=== PATIENT | female | born 1955 | race Caucasian/White ===

== ENCOUNTER → 2017-08-06 | Outpatient (CLI) | payer BC ==
--- NOTE | 2017-08-06 14:00 | CTL ---
EXAMINATION TYPE: CT Low Dose Lung DATE OF EXAM ORDERED: 08/06/2017 HISTORY: Personal history of tobacco abuse. Lung cancer screening CT DLP: 89.[address] CTDI: 2.75 mGy Automated exposure control for dose reduction was used. SCREENING VISIT: Initial COMPARISON: None TECHNIQUE: Low dose computed tomography scan was performed through the chest at 1 mm thick sections a nd reconstructed images in the coronal plane at [address] DIAGNOSTIC QUALITY: Limited, but interpretable FINDINGS: LUNG NODULES: None. LUNGS: COPD: Severity: Mild centrilobular Fibrosis: Severity: None Lymph nodes: No adenopathy Other findings: Pleural parenchymal scarring is seen within the right lower lobe anteriorly with pun[place] jimenez benign calcification distally that could represent a tiny broncholith or granuloma. RIGHT PLEURAL SPACE: Effusion: None Calcification: None Thickening: None Pneumothorax: None LEFT PLEURAL SPACE: Effusion: None Calcification: None Thickening: None Pneumothorax: None HEART: Heart Size: Normal Coronary calcification: Minimal Pericardial effusion: None OTHER FINDINGS: Upper abdomen: Grossly unremarkable Bony thorax: Very minimal degenerative changes of the thoracic spine. Supraclavicular region: No adenopathy IMPRESSION: CT is negative for pulmonary nodule. Compatible with LUNG-RADS 1-no nodules and SMA benig n nodules-(probability of malignancy of less than 1%). FOLLOW UP CT CHEST RECOMMENDATION: Continued annual screening with low dose CT in 12 [address] LUNG RAD: Lung-Rad 1 Negative
== END ==
LOC: RADCTMAIN 13:06
PROVIDERS: ATTEND Family Medicine
DX: Z12.2 Encounter for screening for malignant neoplasm of respiratory organs (principal); Z87.891 Personal history of nicotine dependence

== ENCOUNTER → 2022-01-09 | Outpatient (CLI) | payer MEDICARE, OTHER ==
--- NOTE | 2022-01-11 09:58 | CTL ---
EXAMINATION TYPE: CT Low Dose Lung DATE OF EXAM ORDERED: 01/09/2022 HISTORY: Tobacco use. Lung cancer screening CT DLP: [address] CTDI: 2.2 mGy Automated exposure control for dose reduction was used. SCREENING VISIT: Follow-up visit. COMPARISON: 08/06/2017 TECHNIQUE: Low dose computed tomography scan was performed through the chest at 1 mm thick sections a nd reconstructed images in multiple planes at 1 mm and [address] DIAGNOSTIC QUALITY: Satisfactory FINDINGS: LUNG NODULES: None. LUNGS: COPD: Severity: None Fibrosis: Severity: None Lymph nodes: None Other findings: None RIGHT PLEURAL SPACE: Effusion: None Calcification: None Thickening: None Pneumothorax: None LEFT PLEURAL SPACE: Effusion: None Calcification: None Thickening: None Pneumothorax: None HEART: Heart Size: Normal Coronary Calcification: None Pericardial Effusion: None OTHER FINDINGS: Upper abdomen: The gallbladder surgically absent. Small splenule is noted. Bony thorax: None Supraclavicular region: None Other: None IMPRESSION: No pulmonary nodules. CT LUNG RAD AND CT CHEST RECOMMENDATION: Lung-Rad 1 Negative: Continue annual screening with LDCT in 12 months. S Modifier (other clinically significant findings): None
== END | disposition home or self-care (01) ==
LOC: RADCTMAIN 16:11
PROVIDERS: ATTEND Family Medicine
DX: Z12.2 Encounter for screening for malignant neoplasm of respiratory organs (principal); Z87.891 Personal history of nicotine dependence
CPT/HCPCS: 71271

== ENCOUNTER → 2023-01-27 | Outpatient (CLI) | payer MEDICARE, OTHER ==
[2023-01-27 14:18] LABS: African American GFR (CKD) >90 (>60 ml/min/1.73 sqM); Blood Urea Nitrogen 8 mg/dL (7-17); Non-African American GFR(CKD) 88 (>60 ml/min/1.73 sqM)
--- NOTE | 2023-01-27 16:15 | CT ---
EXAMINATION TYPE: CT abdomen w con CT DLP: 528.1 mGycm, Automated exposure control for dose reduction was used. DATE OF EXAM: 01/27/2023 3:05 PM COMPARISON: 11/14/2012 CLINICAL INDICATION:Female, 67 years old with history of hernia; hernia TECHNIQUE: Axial CT of the ;CT abdomen w con;Sagittal and coronal reformats were created on a [employer] workstation. Contrast used:100 mL of Isovue 300 with IV Contrast, (none if empty) Oral contrast used: with Oral Contrast (none if empty) FINDINGS: LIVER: Unremarkable GALLBLADDER AND BILE DUCTS: The gallbladder is surgically absent. PANCREAS: Unremarkable. SPLEEN: Unremarkable. ADRENAL GLANDS: Unremarkable. KIDNEYS AND URETERS: No evidence of hydronephrosis or renal calculus. The ureters are unremarkable. STOMACH AND BOWEL: No evidence of bowel obstruction. PERITONEUM/RETROPERITONEUM: No evidence of pneumoperitoneum or free fluid. VASCULATURE: No evidence of aortic aneurysm. MUSCULOSKELETAL: No acute osseous abnormalities LYMPH NODES: No gross evidence for lymphadenopathy. SOFT TISSUE/ABDOMINAL WALL: Fat-containing upper ventral wall hernia. IMPRESSION: 1. Fat-containing upper ventral wall hernia. 2. No evidence for acute process.
--- NOTE | 2023-01-27 16:22 | CTL ---
EXAMINATION TYPE: CT Low Dose Lung DATE OF EXAM: 01/27/2023 3:04 PM CLINICAL INDICATION:Female, 67 years old with history of Z12.2 LUNG CANCER SCREENING; personal tobacc o use , history of tobacco use. COMPARISON: None. TECHNIQUE: Multiple axial non-contrast scans were obtained from approximately the lung apices through the upper abdomen. Coronal and sagittal reformatted images were obtained. Low dose technique was uti lized. CT DLP: 83.3 mGycm, Automated exposure control for dose reduction was used. CT Contrast: Contrast used: None Oral contrast used: None FINDINGS: ======== Lack of intravenous contrast and low dose technique limits the evaluation of the vascular and soft ti ssue structures. LUNGS: No evidence of pulmonary fibrosis. No evidence of focal consolidation, pneumothorax or pleural effusion. Nodules: RUL: None. RML: None. RLL: None. ORESTES: None. LLL: None. AIRWAY: Patent and unremarkable. HEART: Size within normal limits. MEDIASTINUM: No gross evidence of adenopathy. VASCULATURE: No aortic aneurysm. MUSCULOSKELETAL: No acute osseous abnormalities SOFT TISSUES/LYMPH NODES: Unremarkable. LOWER NECK: No significant findings. IMPRESSION: No clinically significant pulmonary nodules. CT LUNG RAD AND CT CHEST RECOMMENDATION: Lung-Rad 1 Negative: Continue annual screening with LDCT in 12 months. S Modifier (other clinically significant findings): None Recommend smoking cessation (if current smoker), or continuation of smoking cessation (if prior smoke r). Annual screening for lung cancer with low-dose computed tomography is recommended in adults ages 55 to 77 years who have a 30 pack-year smoking history and currently smoke or have quit within the pa st 15 years. Screening should be discontinued once a person has not smoked for 15 years or develops a health problem that substantially limits life expectancy or the ability or willingness to have curat vadim lung surgery. Lung rads 2021 [email or web address]
== END | disposition home or self-care (01) ==
LOC: RADCTMAIN 13:12
PROVIDERS: ATTEND Family Medicine
DX: Z12.2 Encounter for screening for malignant neoplasm of respiratory organs (principal); F17.210 Nicotine dependence, cigarettes, uncomplicated; K43.9 Ventral hernia without obstruction or gangrene; R19.09 Other intra-abdominal and pelvic swelling, mass and lump
CPT/HCPCS: 82565; 84520; 74160; 36415; 71271; Q9967

== ENCOUNTER → 2023-02-24 | Outpatient (CLI) | payer MEDICARE, OTHER ==
--- NOTE | 2023-02-24 18:42 | BD ---
EXAMINATION TYPE: Axial Bone Density DATE OF EXAM: 02/24/2023 CLINICAL HISTORY: 67 years old Female. ICD-10 CODE: Z78.0 Post menopausal Height: 5 ft 5 in Weight: 155 FRAX RISK QUESTIONS: Alcohol (3 or more units per day): no Family History (Parent hip fracture): no Glucocorticoids (More than 3mos): no (Ex: prednisone, prednisolone, methylprednisolone, dexamethasone, and hydrocortisone). History of Fracture in Adulthood: yes Secondary Osteoporosis: 1. Type 1 Diabetes: no 2. Hyperthyroidism: no 3. Menopause before 45: yes 4. Malnutrition: no 5. Chronic liver disease: no Rheumatoid Arthritis: no Current Tobacco Use: yes RISK FACTORS HISTORY OF: Surgery to Spine/Hip(right/left)/Wrist (right/left): no Family History of Osteoporosis: yes Active: yes Diet low in dairy products/other sources of calcium: no Postmenopausal woman: yes Take estrogen and/or progesterone medications: no Lost more than 2 inches in height since high school: no Frequent falls: no Poor Health: good Hyperparathyroidism: no Adrenal Insufficiency: no MEDICATIONS: Additional Medications: Trazodone, Simvastatin, Zetia, Lexapro, Additional History: EXAM MEASUREMENTS: Bone mineral densitometry was performed using the [employer]. Bone mineral density as measured about the Lumbar spine is: ----- L1-L4(G/cm2): 0.926 T Score Values are as follows: ----- L1: -1.8 ----- L2: -2.0 ----- L3: -2.4 ----- L4: -2.3 ----- L1-L4: -2.1 Z Score Values are as follows: ----- L1: -0.3 ----- L2: -0.5 ----- L3: -0.9 ----- L4: -0.8 ----- L1-L4: -0.6 baseline Bone mineral density about the R hip (g/cm2): 0.737 Bone mineral density about the L hip (g/cm2): 0.764 T Score values are as follows: -----R Neck: -2.2 -----L Neck: -2.0 -----R Total: -2.0 -----L Total: -1.5 Z Score values are as follows: -----R Neck: -0.6 -----L Neck: -0.4 -----R Total: -0.6 -----L Total: -0.2 baseline FRAX%s: The graph provided illustrates a 21.4 % chance for a major osteoporotic fx and a 7.0 % chance for the hips probability for fx in 10 years time. IMPRESSION: Osteopenia (T Score between -2.5 and -1). There is slightly increased risk of fracture and the patient may be considered for treatment. Re-Screen 2-5 years. NOTE: T-SCORE=SD OF THE YOUNG ADULT MEAN.
--- NOTE | 2023-02-26 12:12 | MM ---
Reason for Exam: Screening (asymptomatic). Last mammogram was performed 9 year(s) and 5 month(s) ago. Patient History: Menarche at age 11. First Full-Term at age 27. Left ovary removed at age 42. Right ovary removed at age 42. Hysterectomy at age 42. Postmenopausal. Patient has history of breast feeding. Estrogen for 6 years from age 42 until age 48. Patient used Hormonal Contraceptives for 5 years. Paternal grandmother had breast cancer, age 60. Paternal aunt had breast cancer, age 40. Mother had breast cancer, age 80. Risk Values: Karina 5 year model risk: 3.4%. NCI Lifetime model risk: 10.2%. Prior Study Comparison: 04/29/2008 Bilateral Screening Mammogram, [facility]. 06/10/2011 Bilateral Screening Mammogram, [facility]. 10/13/2013 Bilateral Screening Mammogram, [facility]. Tissue Density: The breast tissue is heterogeneously dense. This may lower the sensitivity of mammography. Findings: Analyzed By CAD. There is no suspicious group of microcalcifications or new suspicious mass in either breast. Overall Assessment: Benign, BI-RAD 2 Management: Screening Mammogram of both breasts in 1 year. . Patient should continue monthly self-breast exams. A clinical breast exam by your physician is recommended on an annual basis. This exam should not preclude additional follow-up of suspicious palpable abnormalities. Note on Karina scores and lifetime risk: 1. A Karina score greater than 3% is considered moderate risk. If this is the case, consider specialist referral to assess eligibility for a risk reducing agent. 2. If overall lifetime risk for the development of breast cancer is 20% or higher, the patient may qualify for future screening with alternating mammogram and breast MRI. Electronically signed and approved by: Pramod Fletcher M.D. Radiologis
== END | disposition home or self-care (01) ==
LOC: RADMAMWWP 15:53
PROVIDERS: ATTEND Family Medicine
DX: Z12.31 Encounter for screening mammogram for malignant neoplasm of breast (principal); M85.89 Other specified disorders of bone density and structure, multiple sites; Z78.0 Asymptomatic menopausal state; Z80.3 Family history of malignant neoplasm of breast; Z92.0 Personal history of contraception
CPT/HCPCS: 77063; 77067; 77080

== ENCOUNTER → 2023-08-14 | Day surgery (SDC) | payer MEDICARE, OTHER ==
[~2023-08-14] MED LIST: ACETAMINOPHEN TAB 325 MG TAB PO SCH; ACETAMINOPHEN TAB 500 MG TAB ONE; GLYCOPYRROLATE 0.2 MG/ML 2 ML VIAL ONE; IBUPROFEN 600 MG TAB PO SCH; LIDOCAINE 1% INJ 10MG/ML (20 ML MDV) ONE; MIDAZOLAM 2 MG/2 ML VIAL IV PRN; MIDAZOLAM 2 MG/2 ML VIAL ONE; NEOSTIGMINE 1 MG/ML 10 ML VIAL ONE; PROPOFOL 10 MG/ML 20 ML VIAL IV ONE; ROCURONIUM 10 MG/ML (5 ML VIAL) IV ONE; SUCCINYLCHOLINE CHLORIDE 200 MG/10 ML VIAL IV ONE; fentaNYL (PF) 50 MCG/ML 2 ML AMP ONE
--- NOTE | 2023-08-14 07:32 | P.GSHP ---
History of Present Illness H&P Date: 08/14/23 Chief Complaint: Incisional hernia 68 female known to our service. Patient with history of previous cholecystectomy. Patient has complaints of mildly uncomfortable mass upper abdomen. Imaging shows reducible hernia there. This contains fatty tissue. Past Medical History Past Medical History: Asthma, GERD/Reflux, Hyperlipidemia, Osteoarthritis (OA) Additional Past Medical History / Comment(s): allergy induced asthma-no inhalers History of Any Multi-Drug Resistant Organisms: None Reported Past Surgical History: Appendectomy, Section, Cholecystectomy Additional Past Surgical History / Comment(s): C/S x2 Past Anesthesia/Blood Transfusion Reactions: No Reported Reaction Smoking Status: Current every day smoker - Past Family History Mother Family Medical History: Deep Vein Thrombosis (DVT) Medications and Allergies Home Medications Medication Instructions Recorded Confirmed Type Van/D3/Mag11/Zinc/Assistant Professor Of Geography/Edgard/Bor 1 each PO DAILY 08/11/23 08/11/23 History [Caltrate 600+D Plus Tablet] Escitalopram [Lexapro] 10 mg PO HS 08/11/23 08/11/23 History Ezetimibe [Zetia] 10 mg PO HS 08/11/23 08/11/23 History Fexofenadine HCl [Selina Allergy] 180 mg PO DAILY 08/11/23 08/11/23 History Omeprazole [PriLOSEC] 20 mg PO HS 08/11/23 08/11/23 History Phenylephrine HCl [Sudafed PE] 10 mg PO DAILY 08/11/23 08/11/23 History Simvastatin [Zocor] 40 mg PO HS 08/11/23 08/11/23 History Vitamin D3/Vitamin K2 (Mk4) 1 each PO DAILY 08/11/23 08/11/23 History [Vitamin K2 Plus D3 Tablet] Zinc Gluconate [Zinc] 50 mg PO DAILY 08/11/23 08/11/23 History traZODone HCL [Desyrel] 50 mg PO HS 08/11/23 08/11/23 History Allergies Allergy/AdvReac Type Severity Reaction Status Date / Time Penicillins Allergy Rash/Hives Verified 08/11/23 14:47 codeine AdvReac "makes me Verified 08/11/23 14:47 goofy" Surgical - Exam Physical exam: General: Well-developed, well-nourished HEENT: Normocephalic, sclerae nonicteric Abdomen: Nontender, nondistended, reducible epigastric incisional hernia Extremities: No edema Neuro: Alert and oriented Assessment and Plan (1) Incisional hernia Narrative/Plan: 68-year-old female with reducible incisional hernia. Will proceed with open repair incisional hernia with mesh at this time. Risks of bleeding, infection, recurrence, bladder and bowel injury, numbness, nerve injury were discussed with the patient. The patient understands and wishes to proceed. Status: Acute Code(s): K43.2 - INCISIONAL HERNIA WITHOUT OBSTRUCTION OR GANGRENE SNOMED Code(s): 917164692
[2023-08-14] MEDS: LACTATED RINGERS 1,000 ML IV SCH (14:55)
[2023-08-14] MEDS: ONDANSETRON 4 MG/2 ML VIAL IVP ONE (14:55)
[2023-08-14] MEDS: DEXAMETHASONE SOD PHOSPHATE 4 MG/ML 1 ML VIAL IV ONE (14:55)
[2023-08-14] MEDS: HEPARIN SODIUM,PORCINE 5,000 UNIT/ML 1 ML VIAL SQ ONE (14:56)
[2023-08-14] MEDS: ACETAMINOPHEN TAB 500 MG TAB PO ONE (15:26)
[2023-08-14] MEDS: BUPIVACAINE (PF) 0.5% 30 ML VIAL SQ ONE ×2 (16:03)
--- NOTE | 2023-08-14 16:31 | P.OP ---
Date of Procedure: 08/14/23 Procedure(s) Performed: PREOPERATIVE DIAGNOSIS: Reducible incisional hernia POSTOPERATIVE DIAGNOSIS: Same PROCEDURE: Open repair reducible incisional hernia with mesh SURGEON: Dr. Zepeda ANESTHESIA: General OPERATIVE PROCEDURE DETAILS: Patient placed on the operating table in the supine position. Abdomen was prepped and draped in usual sterile fashion. The previous incision was re-incised. Dissection through the subcutaneous tissues took place using electrocautery. A small reducible hernia was identified. The hernia sac was carefully dissected down to the level of the fascia where it was then reduced. A single defect measuring 1.7 x 1 cm was found. The preperitoneal space was dissected using blunt dissection and cautery. The 4.3 cm ventral ex mesh was placed beneath the fascia. We were not in the peritoneum. The fascia was then reapproximated using overlapping vest over pants mattress sutures with 0 Ethibond. The subcutaneous tissues were closed using 3-0 Vicryl sutures. The skin was closed using bria. Sterile dressings were applied. HERNIA CHARACTERISTICS: Length: 1 cm Width: 1.7 cm Type: Reducible incisional TYPE OF MESH USED: 4.3 cm Ventralex LOCATION OF MESH: Sublay FIXATION: 0 Ethibond PREOPERATIVE DISCUSSION ON SMOKING CESSASTION: Yes PREOPERATIVE DISCUSSION ON MORBID OBESITY: Yes PREOPERATIVE DISCUSSION ON APPROPRIATE USE OF NARCOTIC USE: Yes PREOPERATIVE EDUCATION: Multi Modal, Smoking Cessation and Weight Loss with BMI over 35. DISPOSITION: Stable to recovery room
[2023-08-14 16:46] VITALS: TEMP 97
[2023-08-14] MEDS: fentaNYL (PF) 50 MCG/ML 2 ML AMP IV PRN (16:47)
[2023-08-14 17:34] VITALS: BP 118/56; PULSE 82
[2023-08-14 17:35] VITALS: RESP 18
== END | disposition home or self-care (01) ==
LOC: OR 14:21
PROVIDERS: ATTEND Surgery
DX: K43.2 Incisional hernia without obstruction or gangrene (principal); J45.909 Unspecified asthma, uncomplicated; K21.9 Gastro-esophageal reflux disease without esophagitis; E78.5 Hyperlipidemia, unspecified; M19.90 Unspecified osteoarthritis, unspecified site; F32.A Depression, unspecified; F17.210 Nicotine dependence, cigarettes, uncomplicated; Z88.0 Allergy status to penicillin; Z88.5 Allergy status to narcotic agent; Z90.49 Acquired absence of other specified parts of digestive tract; Z79.899 Other long term (current) drug therapy
CPT/HCPCS: 49591; C1781; J2250; J0330; J1644; J1100; J2710; J0690; J2405; J2001; J3010; J2704; J0665

== ENCOUNTER → 2024-03-25 | Outpatient (CLI) | payer MEDICARE, OTHER ==
--- NOTE | 2024-03-28 07:49 | MM ---
Reason for Exam: Screening (asymptomatic). Last mammogram was performed 1 year(s) and 1 month(s) ago. Patient History: Menarche at age 11. First Full-Term at age 27. Left ovary removed at age 42. Right ovary removed at age 42. Hysterectomy at age 42. Postmenopausal. Patient has history of breast feeding. Estrogen for 6 years from age 42 until age 48. Patient used Hormonal Contraceptives for 5 years. Paternal grandmother had breast cancer, age 60. Paternal aunt had breast cancer, age 40. Mother had breast cancer, age 80. Risk Values: Karina 5 year model risk: 3.4%. NCI Lifetime model risk: 9.7%. Prior Study Comparison: 06/10/2011 Bilateral Screening Mammogram, [facility]. 10/13/2013 Bilateral Screening Mammogram, [facility]. 02/24/2023 Bilateral MG 3D screening mammo w/cad, [facility]. Tissue Density: The breasts are heterogeneously dense, which may obscure small masses. Findings: Analyzed By CAD. Right breast: There is no suspicious group of microcalcifications or new suspicious mass. Left breast: There is no suspicious group of microcalcifications or new suspicious mass. Overall Assessment: Negative, BI-RAD 1 Management: Screening Mammogram of both breasts in [address] [facility] will attempt to contact patient to return for supplemental views and ultrasound if indicated. Patient should continue monthly self-breast exams. A clinical breast exam by your physician is recommended on an annual basis. This exam should not preclude additional follow-up of suspicious palpable abnormalities. Note on Karina scores and lifetime risk: 1. A Karina score greater than 3% is considered moderate risk. If this is the case, consider specialist referral to assess eligibility for a risk reducing agent. 2. If overall lifetime risk for the development of breast cancer is 20% or higher, the patient may qualify for future screening with alternating mammogram and breast MRI. [facility], , 03/28/2024 7:46 AM. Electronically signed and approved by: Drew Reed DO
== END | disposition home or self-care (01) ==
LOC: RADMAMWWP 11:20
PROVIDERS: ATTEND Family Medicine
DX: Z12.31 Encounter for screening mammogram for malignant neoplasm of breast (principal); Z90.722 Acquired absence of ovaries, bilateral; Z78.0 Asymptomatic menopausal state; Z80.3 Family history of malignant neoplasm of breast; R92.333 Mammographic heterogeneous density, bilateral breasts
CPT/HCPCS: 77063; 77067